=== PATIENT | female | born 1990 | race African-American/Black ===

== ENCOUNTER 2024-01-01 16:29 | Emergency (ER) | payer OTHER ==
[~2024-01-01] VITALS: Ht 172.7 cm; Wt 90.7 kg
[2024-01-01] MEDS ORDERED: NAPR-1164 PO (17:17)
[2024-01-01 18:22] VITALS: O2SAT 95
== END 2024-01-01 18:22 | disposition home or self-care (01) ==
LOC: ER 16:33
DX: S63.592A Other specified sprain of left wrist, initial encounter (principal); R51.9 Headache, unspecified; Z79.899 Other long term (current) drug therapy; V89.2XXA Person injured in unspecified motor-vehicle accident, traffic, initial encounter; Y93.89 Activity, other specified; Y92.89 Other specified places as the place of occurrence of the external cause; Y99.8 Other external cause status
CPT/HCPCS: 73110; A4606; A4663